=== PATIENT | female | born 2000 ===

== ENCOUNTER 2022-07-02 14:52 | Emergency (ER) | payer SELFPAY ==
[2022-07-02 15:07] VITALS: BP 155/89; PULSE 65; RESP 14; TEMP 36.8; O2SAT 98
--- NOTE | 2022-07-02 16:22 | PC.NURSE ---
PT LEFT D/T WAIT TIME
== END 2022-07-02 16:28 | disposition left against medical advice (07) ==
LOC: ANHED 16:27
DX: K62.5 Hemorrhage of anus and rectum (principal)
CPT/HCPCS: 99199